=== PATIENT | male | born 1965 | race Caucasian/White ===

== ENCOUNTER 2020-01-02 09:29 | Emergency (ER) | payer MEDICAID ==
[~2020-01-02] VITALS: Ht 172.7 cm; Wt 95.0 kg
[2020-01-02] MEDS ORDERED: INSASP SUBCUT (09:45)
[2020-01-02] MEDS ORDERED: KETOROLAC 60MG/2ML VIAL IM ONE (11:00)
[2020-01-02 11:46] VITALS: BP 140/86
== END 2020-01-02 11:46 | disposition home or self-care (01) ==
LOC: ER 09:29
DX: M25.562 Pain in left knee (principal); M25.561 Pain in right knee; E11.9 Type 2 diabetes mellitus without complications; I10 Essential (primary) hypertension; E78.00 Pure hypercholesterolemia, unspecified; Z98.890 Other specified postprocedural states
CPT/HCPCS: 73560; 96372; 99283; J1885